=== PATIENT | female | born 1950 | race Caucasian/White ===

== ENCOUNTER 2023-04-21 10:21 | Outpatient (REF) | payer MEDICARE, SELFPAY ==
--- NOTE | ~2023-04-21 | XR_ITS ---
EXAMINATION: XR KNEE, LEFT CLINICAL INFORMATION: Pain in left knee. COMPARISON: None available. TECHNIQUE: Three views of the left knee. FINDINGS: Trace joint effusion. Bones are diffusely demineralized. Severe degenerative changes in the medial compartment with [id number] loss of the joint space, remodeling, and sclerosis. Advanced degenerative changes in the patellofemoral joint. Small tricompartmental spurs. XR/XR knee LT 3V IMPRESSION: Severe degenerative changes medial compartment.
== END 2023-04-21 10:22 | disposition home or self-care (01) ==
LOC: HO.HOSX 10:21
PROVIDERS: Visit Provider Orthopaedic Surgery
DX: M25.562 Pain in left knee (principal); Z79.899 Other long term (current) drug therapy
CPT/HCPCS: 73562; 99202

== ENCOUNTER 2023-04-21 10:47 | Outpatient (AMB) | payer MEDICARE, SELFPAY ==
--- NOTE | 2023-04-21 10:52 | A.OFFVIS_ITS ---
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 Patient reports her pain is a 10 on the 1-10 pain scale. She reports she is using tramadol for the pain and is not helping and had injections that did not help. The patient states that she normally ambulates with a walker because of her knee pain and lung disease. She has been on oxygen support for several years. Medication List - Last Reconciled 04/21/23 by Frank Salazar MD allopurinol 300 mg PO DAILY atorvastatin 20 mg PO DAILY bupropion HCl 150 mg PO DAILY cholecalciferol (vitamin D3) 25 mcg PO DAILY folic acid 1 mg PO DAILY gabapentin 300 mg PO DAILY lorazepam 1 mg PO DAILY PRN omeprazole 20 mg PO DAILY quetiapine 100 mg PO DAILY sertraline 100 mg PO DAILY sulfasalazine PO temazepam 30 mg PO BEDTIME PRN tramadol 50 mg PO QDAY [facility] Surgical History (Updated 04/21/23 @ 11:18 by Karlie Garcia CMA) History of hip surgery (~2007) Hx of knee surgery (~2007) Hx of shoulder surgery (Unknown) Physical Exam Vital Signs: BMI result Body Mass Index 43.6 Extrem Other: Left knee examination shows a minimal effusion, palpable crepitus with range of motion, pain with range of motion, no instability Results Reviewed Results Reviewed: X-rays of the patient's left knee show grade 4 end-stage degenerative joint disease with [id number] arthritis, subchondral sclerosis, osteophyte formation, no acute bony abnormalities Assessment & Plan Assessment & Plan (1) Left knee pain: Code(s): M25.562 - Pain in left knee Plan Mrs. Wall presents with left knee pain due to severe degenerative joint disease. I had a lengthy discussion with the patient and her daughter regarding the treatment options. Based on the patient's BMI of 43 and her chronic lung disease I do not feel that she is a good surgical candidate. The patient will continue to exercise and lose weight as much as possible. She will follow up with her arthritis specialist at the [facility] as scheduled for continued injection therapy. She will follow up with me on an as-needed basis. Feel free to call me at any time should questions regarding her orthopedic management arise. I spent 20 minutes in reviewing the patient's records and imaging studies, seeing the patient and documenting in the medical record. Orders: Orders XR knee LT 3V Today M25.562 - Pain in left knee Coding Level of Care Code New Pt Level 2 (52044) Diagnoses Left knee pain M25.562
[2023-04-21 11:06] VITALS: BMI 43.6
== END 2023-04-21 11:37 | disposition home or self-care (01) ==
PROVIDERS: Visit Provider Orthopaedic Surgery
DX: M25.562 Pain in left knee (principal)
CPT/HCPCS: 99202

== ENCOUNTER 2023-05-04 08:27 | Outpatient (AMB) | payer MEDICARE, SELFPAY ==
--- NOTE | 2023-05-04 08:46 | MHC.OFFVIS ---
Intake Vital Signs 05/04/23 08:48 Height 5 ft 4 in Weight 255 lb BMI 43.8 BP 163/73 H Blood Pressure Location Lt radial Position Sitting Respiration 12 Pulse 90 Pulse Source Pulse Oximeter Pulse Oximetry (%) 91 L Oxygen Delivery Method Nasal Cannula Intake Visit Reasons: Unilateral Primary Osteoarthritis, Left Knee/lvm Allergies pentazocine [From Talwin] Allergy (Severe, Verified 05/04/23 08:51) Hallucinations leflunomide [From Arava] Adverse Reaction (Severe, Verified 05/04/23 08:51) Diarrhea lisinopril Adverse Reaction (Severe, Verified 05/04/23 08:51) Cough Medication List - Last Reconciled 05/04/23 by Asha Adam LPN albuterol sulfate 90 mcg/actuation inhalation allopurinol 300 mg PO DAILY atorvastatin 20 mg PO DAILY bupropion HCl 150 mg PO DAILY cholecalciferol (vitamin D3) 25 mcg PO DAILY diltiazem HCl 180 mg PO DAILY folic acid 1 mg PO DAILY gabapentin 300 mg PO DAILY lorazepam 1 mg PO DAILY PRN omeprazole 20 mg PO DAILY quetiapine 100 mg PO DAILY sertraline 100 mg PO DAILY sulfasalazine 1 g PO .5x daily temazepam 30 mg PO BEDTIME PRN tramadol 50 mg PO QDAY HPI Unilateral Primary Osteoarthritis, Left Knee/lvm HPI Details 72-year-old female who presents today to the office for an evaluation of unilateral primary osteoarthritis of the left knee. She has a longstanding history of left knee pain that started about 10?15 years ago. The pain around the right knee is rated at 10/10 in intensity. She is unable to go to sleep normally or do her daily activities. The pain is constant in the morning. She is using tramadol for the pain with no relief. She had injections in the past that provided no relief. She can only walk with the help of a walker. She is not a candidate for knee replacement surgery due to coexisting pulmonary fibrosis. She usually wears a nasal cannula of 3 liters at home, and her sats are at 90 to 92%. [facility] Medical History (Updated 05/04/23 @ 05:20 by Liam Stratton) Gout Hemorrhoids Rheumatoid arthritis Osteopenia Anemia Pure hypercholesterolemia Morbid obesity GERD (gastroesophageal reflux disease) Recurrent major depressive episodes Pain in lower limb Derangement of meniscus Folic acid deficiency History of tobacco use Dependence on supplemental oxygen Hiatal hernia Multiple nodules of lung Diverticular disease Pernicious anemia Recurrent urinary tract infection Fibrosis of lung Vitamin B12 deficiency Insomnia Hypertensive renal disease Thrombocytopenia Pulmonary emphysema Chronic pain syndrome History of severe acute respiratory syndrome coronavirus 2 (SARS-CoV-2) disease Chronic kidney disease, stage 2 (mild) Body mass index 40.0-44.9, adult Osteoarthritis of left knee Adhesive capsulitis of right shoulder Hypoxemia Disorder of shoulder Arthritis of both acromioclavicular joints Pancytopenia Major depression in partial remission Surgical History (Updated 04/21/23 @ 11:18 by Karlie Garcia CMA) History of hip surgery (~2007) Hx of knee surgery (~2007) Hx of shoulder surgery (Unknown) Review of Systems Const All systems reviewed & are unremarkable except as noted in HPI and below Physical Exam Vital Signs: Last Vital Signs Pulse 90 05/04/23 08:48 Resp 12 05/04/23 08:48 BP 163/73 H 05/04/23 08:48 Pulse Ox 91 L 05/04/23 08:48 Oxygen Delivery Method Nasal Cannula 05/04/23 08:48 BMI result Body Mass Index 43.8 General: Appears afebrile. Alert and oriented. Mood and affect appropriate. Follows and participates in conversation appropriately. Respiratory effort is unlabored. Able to transition from sit to stand unassisted. Ambulates with bilaterally normal heel strike and toe off. Significant tenderness to palpation overlying the medial and lateral aspects of the knee. Office Procedures Nerve Block Details: Left sided genicular nerve blocks, ultrasound guided. After obtaining written consent, pre-procedure blood pressure and heart rate were stable and recorded in the nursing record. The area overlying the peripheral nerves was widely prepped with chloraprep, allowed to dry and sterilely draped. Using ultrasound, the appropriate landmarks were identified. A 22 gauge 3.5 inch needle was advanced under ultrasound guidance to the appropriate landmark of each peripheral nerve. Aspiration was negative for heme and synovial fluid. 1 cc of ropivacaine 0.5% was injected around each targeted nerve. The needles were removed, skin cleansed and a sterile bandage was applied. The patient tolerated the procedure well and no complications were encountered. Following the procedure the patient's vital signs were stable. The patient was discharged home in good condition with post-procedural instructions. Time Out: Immediately prior to the procedure, the following was verbally confirmed that there is a signed consent form and that the correct patient, planned procedure, site and side are consistent with documentation and that necessary equipment and/or blood products are available prior to the start of the case. Complications: none EBL: <5 cc Note: An ultrasound image of the injection was taken and stored in the permanent record. 97019-Toqtneelie Nerve Block (left, ultrasound guided. ) Procedure code (CPT) selection complete Results Reviewed Results Reviewed: 04/21/23: XR KNEE, LEFT FINDINGS: Trace joint effusion. Bones are diffusely demineralized. Severe degenerative changes in the medial compartment with [id number] loss of the joint space, remodeling, and sclerosis. Advanced degenerative changes in the patellofemoral joint. Small tricompartmental spurs. IMPRESSION: Severe degenerative changes medial compartment. Assessment & Plan Assessment & Plan (1) Arthritis of left knee: Code(s): M17.12 - Unilateral primary osteoarthritis, left knee (2) Left knee pain: Code(s): M25.562 - Pain in left knee Plan I discussed genicular radiofrequency lesioning as well as implantable peripheral nerve stimulation for her chronic knee pain. To avoid the need for anesthesia, we will start with a trial of genicular nerve blocks and possible RFL before considering PNS implantation if her pain is not responsive to RFA. The patient's status [id number] genicular nerve blocks is ultrasound-guided. The patient tolerated the procedure well and was discharged home in stable condition with discharge instructions.? All questions were answered. We will follow up to assess the response to therapy. A follow-up appointment was made during today's visit. Scribed for Dr. Samuel by Liam Stratton, medical office supervisor, on 05/04/2023. I, Dr. Samuel, have personally reviewed and agree with the information entered by the scribe. Coding Level of Care Code New Pt Level 4 (46110) Diagnoses Arthritis of left knee M17.12 Left knee pain M25.562 CPT Codes Nerve Block - Nerve Block: 26317-[id number] Nerve Block ([id number])
[2023-05-04 08:48] VITALS: BP 163/73; PULSE 90; RESP 12; O2SAT 91; BMI 43.8
== END 2023-05-04 09:27 | disposition home or self-care (01) ==
PROVIDERS: PCP Pediatrics; Referring Provider Orthopaedic Surgery; Visit Provider Internal Medicine
DX: M17.12 Unilateral primary osteoarthritis, left knee (principal); M25.562 Pain in left knee
CPT/HCPCS: 64454; 99204

== ENCOUNTER → 2023-05-04 08:27 | Outpatient (BNVA) | payer MEDICARE, SELFPAY | PROVIDERS: PCP Pediatrics; Visit Provider Internal Medicine | DX: M17.12 Unilateral primary osteoarthritis, left knee (principal) | CPT/HCPCS: 64454; 99202; J2795 ==

== ENCOUNTER 2023-05-08 08:16 | Outpatient (AMB) | payer MEDICARE, SELFPAY ==
--- NOTE | 2023-05-08 08:17 | A.OFFVIS_ITS ---
Intake Intake Visit Reasons: s/p left genicular Allergies pentazocine [From Talwin] Allergy (Severe, Verified 05/04/23 08:51) Hallucinations leflunomide [From Arava] Adverse Reaction (Severe, Verified 05/04/23 08:51) Diarrhea lisinopril Adverse Reaction (Severe, Verified 05/04/23 08:51) Cough HPI s/p left genicular HPI Details 72-year-old female who presents today vi a telehealth visit for a status post left genicular nerve block. The patient reports no relief following the procedure. Past procedure: 05/04/23: Left sided genicular nerve blo cks, ultrasound guided: no relief. [facility] Medical History (Updated 05/04/23 @ 05:20 by Liam Stratton) Gout Hemorrhoids Rheumatoid arthritis Osteopenia Anemia Pure hypercholesterolemia Morbid obesity GERD (gastroesophageal reflux disease) Recurrent major depressive episodes Pain in lower limb Derangement of meniscus Folic acid deficiency History of tobacco use Dependence on supplemental oxygen Hiatal hernia Multiple nodules of lung Diverticular disease Pernicious anemia Recurrent urinary tract infection Fibrosis of lung Vitamin B12 deficiency Insomnia Hypertensive renal disease Thrombocytopenia Pulmonary emphysema Chronic pain syndrome History of severe acute respiratory syndrome coronavirus 2 (SARS-CoV-2) disease Chronic kidney disease, stage 2 (mild) Body mass index 40.0-44.9, adult Osteoarthritis of left knee Adhesive capsulitis of right shoulder Hypoxemia Disorder of shoulder Arthritis of both acromioclavicular joints Pancytopenia Major depression in partial remission Surgical History (Updated 04/21/23 @ 11:18 by Karlie Garcia [facility]) History of hip surgery (~2007) Hx of knee surgery (~2007) Hx of shoulder surgery (Unknown) Review of Systems Const All systems reviewed & are unremarkable except as noted in HPI and below Results Reviewed Results Reviewed: No imaging is available for review. Assessment & Plan Assessment & Plan (1) Arthritis of left knee: Code(s): M17.12 - Unilateral primary osteoarthritis, left knee (2) Left knee pain: Code(s): M25.562 - Pain in left knee Plan Discussed permanent nerve stimulator as a possible treatment option. Patient is interested in trialing the device. Will place a referral for psychology clearance. Once we have received psychology clearance, we will plan for trial of infrapatellar saphenous nerve stimulation implant under a very minimal to no sedation given her comorbidities. The patient will receive a call from [facility] for the psychology assessment. Scribed for Dr. Samuel by Liam Stratton, registered medical assistant, on 05/08/2023. I, Dr. Samuel, have personally reviewed and agree with the information entered by the scribe. Telehealth Telehealth Location of provider rendering services: practice address Location of patient: address on file Patient Identification confirmed using: Name, : Yes Telehealth method: voice only Patient verbally consented to treatment: Yes Patient verbally consented to billing insurance company: Yes Patient informed of any privacy concerns related to visit: Yes Minutes spent on Phone/Video with Pt.: 4 Coding Level of Care Code Tele Est Pt Level 3 (26889) Diagnoses Arthritis of left knee M17.12 Left knee pain M25.562
== END 2023-05-08 08:17 | disposition home or self-care (01) ==
LOC: HO.PMC 08:16
PROVIDERS: PCP Pediatrics; Visit Provider Internal Medicine
DX: M17.12 Unilateral primary osteoarthritis, left knee (principal); M25.562 Pain in left knee
CPT/HCPCS: 99441

== ENCOUNTER → 2023-05-08 08:16 | Outpatient (BNVA) | payer MEDICARE, SELFPAY | PROVIDERS: PCP Pediatrics; Visit Provider Internal Medicine ==